=== PATIENT | female | born 2000 | race Caucasian/White ===

== ENCOUNTER 2019-06-17 16:16 | Emergency (ER) | payer OTHER ==
[2019-06-17 16:30] VITALS: BP 134/78
== END 2019-06-17 17:04 | disposition left against medical advice (07) ==
LOC: ED 16:16
DX: M79.604 Pain in right leg (principal); M79.89 Other specified soft tissue disorders; Z53.21 Procedure and treatment not carried out due to patient leaving prior to being seen by health care provider
CPT/HCPCS: 99281

== ENCOUNTER 2019-06-19 20:22 | Emergency (ER) | payer OTHER ==
--- NOTE | 2019-06-19 22:47 | ED ---
Lower Extremity - HPI Summary HPI Summary: 18 yo female presents with right ankle pain. She tells me that for the last week she has been having right medial ankle pain and has subjective swelling just above her medial joint. She denies injury, but is quite active at school, work, and going to the gym. She has not taken anything OTC for her discomfort. Denies injury, numbness, tingling, calf pain/swelling, hx of blood clots. - History of Current Complaint Chief Complaint: EDExtremityLower Stated Complaint: BLOOD CLOT IN RIGHT LEG PER PT Time Seen by Provider: 06/19/19 22:26 Hx Obtained From: Patient Severity Initially: Moderate Severity Currently: Moderate Pain Intensity: 8 Pain Scale Used: 0-10 Numeric - Allergies/Home Medications Allergies/Adverse Reactions: Allergies Allergy/AdvReac Type Severity Reaction Status Date / Time Penicillins Allergy Hives Verified 06/19/19 20:27 Home Medications: Home Medications NK [No Home Medications Reported] 06/19/19 [History Confirmed 06/19/19] PMH/Surg Hx/FS Hx/Imm Hx Endocrine/Hematology History: Denies: Hx Anticoagulant Therapy, Hx Blood Disorders, Hx Diabetes Cardiovascular History: Denies: Hx Hypotension, Hx Hypertension Respiratory History: Denies: Hx Asthma, Hx Chronic Obstructive Pulmonary Disease (COPD) Neurological History: Denies: Hx CVA, Hx Headaches, Hx Migraine - Surgical History Surgical History: None - Immunization History Immunizations Up to Date: Yes Infectious Disease History: No Infectious Disease History: Denies: Traveled Outside the [place] in Last 30 Days - Family History Known Family History: Positive: None - Social History Occupation: Employed Full-time Lives: With Family Alcohol Use: None Substance Use Type: Reports: None Smoking Status (MU): Never Smoked Tobacco Review of Systems Constitutional: Negative Cardiovascular: Negative Respiratory: Negative Gastrointestinal: Negative Genitourinary: Negative Musculoskeletal: Other - right ankle pain Skin: Negative Neurological: Negative Psychological: Normal All Other Systems Reviewed And Are Negative: Yes Physical Exam - Summary Physical Exam Summary: GENERAL: NAD. WDWN. No pain distress. SKIN: No rashes, sores, lesions, or open wounds. CHEST: No accessory muscle use. Breathing comfortably and in no distress. CV: Pulses intact PT and DP. Cap refill <2seconds. Negative riya sign. MSK: RIGHT ANKLE: FROM. Strength 5/5. No edema or obvious bony deformities. Negative talar tilt. No increased laxity. Negative Forest test. No calf pain or swelling. NEURO: Alert. Sensations intact and symmetric B/L LEs PSYCH: Age appropriate behavior. Triage Information Reviewed: Yes Vital Signs On Initial Exam: Initial Vitals Temp Pulse Resp BP Pulse Ox 98 F 85 16 133/83 98 06/19/19 20:24 06/19/19 20:24 06/19/19 20:24 06/19/19 20:24 06/19/19 20:24 Vital Signs Reviewed: Yes Procedures - Sedation Patient Received Moderate/Deep Sedation with Procedure: No Diagnostics - Vital Signs Vital Signs Temp Pulse Resp BP Pulse Ox 06/19/19 20:24 98 F 85 16 133/83 98 - Laboratory Lab Statement: Any lab studies that have been ordered have been reviewed, and results considered in the medical decision making process. - Radiology US Radiology Interpretation Completed By: Radiologist Summary of Radiographic Findings: FINDINGS: Right deep veins: Unremarkable. The common femoral, femoral, proximal profunda femoral and popliteal veins are patent without thrombus. Normal Doppler waveforms. Normal compressibility and/ or augmentation response. Right superficial veins: Unremarkable. Saphenofemoral junction is patent without thrombus. Soft tissues: Unremarkable. IMPRESSION: No acute findings. No evidence of deep vein thrombosis. Ankle XR Radiology Interpretation Completed By: ED Physician Summary of Radiographic Findings: No fx Lower Extremity Course/Dx - Course Course Of Treatment: XR wet read negative. Exam is most consistent with tendinitis along the medial ankle. Will try her with a CAM boot and advise RICE and tylenol/ibuprofen for discomfort. Recommend f/u with Orthopedics if symptoms do not improve. - Diagnoses Provider Diagnoses: Right ankle pain Discharge ED - Sign-Out/Discharge Documenting (check all that apply): Patient Departure - Discharge Plan Condition: Stable Disposition: HOME Patient Education Materials: Arthralgia (ED) Referrals: Renaldo Torres MD [Primary Care Provider] - Yan Medley MD [Medical Doctor] - If Needed Additional Instructions: If you develop a fever, shortness of breath, chest pain, new or worsening symptoms - please call your PCP or go to the ED immediately. 1) Your X-ray and ultrasound were normal today 2) your pain could be related to tendinitis to the area - try using the walking boot when active for a week to see if this improves your pain 3) If your symptoms do not improve - please call Orthopedics at the number below to schedule an appointment for a recheck - Billing Disposition and Condition Condition: STABLE Disposition: Home
[2019-06-19 23:50] VITALS: BP 129/86
== END 2019-06-19 23:50 | disposition home or self-care (01) ==
LOC: ED 20:22
DX: M25.571 Pain in right ankle and joints of right foot (principal); M79.89 Other specified soft tissue disorders
CPT/HCPCS: 99282